=== PATIENT | male | born 1970 | race Caucasian/White ===

== ENCOUNTER 2016-08-16 09:37 | Emergency (ER) | payer OTHER ==
[~2016-08-16] VITALS: Ht 188 cm; Wt 67.7 kg
[~2016-08-16 09:37] MED LIST: ERYTHROMYC1 APPLICAT RIGHT EYE; NORCO 5/3251 TABLET PO
[2016-08-16] MEDS ORDERED: NAPROSYN500 MG PO (11:51)
[2016-08-16] MEDS ORDERED: FLEXERIL10 MG PO (11:51)
[2016-08-16 12:14] VITALS: BP 102/87
== END 2016-08-16 12:15 | disposition home or self-care (01) ==
LOC: EME 09:37
DX: S05.12XA Contusion of eyeball and orbital tissues, left eye, initial encounter (principal); M54.2 Cervicalgia; H11.32 Conjunctival hemorrhage, left eye; Y04.8XXA Assault by other bodily force, initial encounter; Y07.410 Brother, perpetrator of maltreatment and neglect; F17.200 Nicotine dependence, unspecified, uncomplicated
CPT/HCPCS: 70480; 72125; 99281; 99284; J1885